=== PATIENT | female | born 1995 | race Caucasian/White ===

== ENCOUNTER 2024-01-06 01:32 | Emergency (ER) | payer OTHER ==
[~2024-01-06] VITALS: Ht 160 cm; Wt 48.1 kg
[2024-01-06 01:36] VITALS: O2SAT 100
[2024-01-06] MEDS ORDERED: ALPRAZOLAM 0.5 MG TABLET ONE (02:09)
[2024-01-06] MEDS: ALPRAZOLAM 0.25 MG TABLET PO ONE (02:13)
[2024-01-06] MEDS: SODIUM BICARBONATE 4.2 % (NEUT) 5 ML VIAL TP ONE (02:15)
[2024-01-06] MEDS: LIDOCAINE 1%-EPI 1:100,000 20 ML VIAL IJ ONE (02:15)
[2024-01-06] MEDS ORDERED: LIDOCAINE 1%-EPI 1:100,000 20 ML VIAL ONE ×2 (02:18→02:19)
[2024-01-06] MEDS ORDERED: SODIUM BICARBONATE 4.2 % (NEUT) 5 ML VIAL ONE (02:18)
[2024-01-06] MEDS ORDERED: TDAP DIPH,PERTUSS,TET VAC/PF 0.5 ML DISP.SYRIN IM ONE (02:27)
[2024-01-06] MEDS ORDERED: BACITRACIN ZINC OINT 15 GM TUBE ONE (02:27)
[2024-01-06] MEDS ORDERED: LIDOCAINE HCL 1% 20 ML VIAL ONE (02:27)
[2024-01-06] MEDS ORDERED: CEFTRIAXONE 1 G VIAL ONE (02:27)
[2024-01-06] MEDS ORDERED: HYDR-4209 PO (02:34)
[2024-01-06] MEDS ORDERED: CEPH500T PO (02:34)
[2024-01-06] MEDS: TDAP DIPH,PERTUSS,TET VAC/PF 0.5 ML DISP.SYRIN IM ONE (04:00)
[2024-01-06] MEDS: CEFTRIAXONE 1 G VIAL IM ONE (04:00)
[2024-01-06] MEDS: NEOMY/BACITRA/POLYMYXIN B OINT UD PACKET TP ONE (04:15)
== END 2024-01-06 04:30 | disposition home or self-care (01) ==
LOC: ER 01:40
DX: S81.812A Laceration without foreign body, left lower leg, initial encounter (principal); F17.210 Nicotine dependence, cigarettes, uncomplicated; Z79.891 Long term (current) use of opiate analgesic; Z79.899 Other long term (current) drug therapy; W26.8XXA Contact with other sharp object(s), not elsewhere classified, initial encounter; Y93.89 Activity, other specified; Y92.89 Other specified places as the place of occurrence of the external cause; Y99.8 Other external cause status
CPT/HCPCS: 12032; 73564; 73590; 90471; 90715; 96372; 99284; 99406; J0696; J3490; A4606; A4663

== ENCOUNTER 2025-03-18 02:54 | Emergency (ER) | payer OTHER ==
[~2025-03-18] VITALS: Ht 160 cm; Wt 47.6 kg
[~2025-03-18 02:54] MED LIST: CEPH500T PO; HYDR-4209 PO
[2025-03-18 02:55] VITALS: BP 132/84
[2025-03-18] MEDS ORDERED: CEFTRIAXONE 500 MG VIAL ONE (03:32)
[2025-03-18] MEDS: CEFTRIAXONE 500 MG VIAL IM ONE (03:45)
[2025-03-18 04:25] LABS: *URINE HCG, QUAL NEGATIVE (NEGATIVE)
[2025-03-18] MEDS ORDERED: DOXY-326 PO (04:26)
[2025-03-18 04:39] VITALS: BP 129/80; O2SAT 99
[2025-03-18 04:58] LABS: HIV-1/2 ANTIBODY NON REACTIVE (NONREACTIVE)
[2025-03-20 19:12] LABS: *CHLAMYDIA NAA Negative (Negative); *GC NAA Negative (Negative); *TRIC.VAG. NAA Positive (Negative)
[2025-03-20 22:06] LABS: HEPATITIS B CORE AB, IgM Negative (Negative); HEPATITIS B SURFACE AG Negative (Negative); HEPATITIS C VIRUS ANTIBODY Non Reactive (Non Reactive)
== END 2025-03-18 04:31 | disposition home or self-care (01) ==
LOC: ER 02:54
DX: Z20.2 Contact with and (suspected) exposure to infections with a predominantly sexual mode of transmission (principal); F17.200 Nicotine dependence, unspecified, uncomplicated; Z72.51 High risk heterosexual behavior; Z88.7 Allergy status to serum and vaccine
CPT/HCPCS: 99283; 86592; 87806; 84703; 96372; 86803; 87340; 87491; 86705; J0696; 36415; A4606; A4663